=== PATIENT | male | born 1970 | race Caucasian/White ===

== ENCOUNTER 2022-08-03 20:01 | Emergency (ER) | payer MEDICAID ==
[~2022-08-03] VITALS: Ht 170.2 cm; Wt 61.3 kg
[2022-08-03] MEDS ORDERED: SODIUM CHLORIDE 0.9% 1,000 ML IV ONE (21:30)
[2022-08-03] MEDS ORDERED: PANTOPRAZOLE 40 MG/10 ML VIAL INJ IV ONE (21:30)
[2022-08-03] MEDS ORDERED: GLUCAGON EMERG KIT 1mg/1ml IV ONE (21:30)
[2022-08-03] MEDS ORDERED: LORazepam 2MG/ML-1ML VIAL IV ONE (21:30)
[2022-08-04 07:39] VITALS: BP 107/67
[2022-08-04 10:48] LABS: Urine Bacteria NONE SEEN /hpf (None Seen); Urine Blood Negative /uL (Negative); Urine Mucus FEW (None Seen); Urine Specific Gravity 1.028 (1.001-1.035); Urine WBC <1 /hpf (0 - 3)
== END 2022-08-05 22:33 | disposition left against medical advice (07) ==
LOC: ER 20:01
DX: T17.228A Food in pharynx causing other injury, initial encounter (principal); R07.89 Other chest pain; F17.210 Nicotine dependence, cigarettes, uncomplicated; X58.XXXA Exposure to other specified factors, initial encounter; Y93.89 Activity, other specified; Y92.89 Other specified places as the place of occurrence of the external cause; Y99.8 Other external cause status
CPT/HCPCS: 70490; 71045; 74018; 81001; 96361; 96374; 96375; 99285; C9113; J1610; J2060; J7030